=== PATIENT | male | born 1970 | race African-American/Black ===

== ENCOUNTER 2021-02-26 08:26 | Emergency (ER) | payer MEDICAID, OTHER, SELFPAY ==
[~2021-02-26] VITALS: Ht 165.1 cm; Wt 89.7 kg
[2021-02-26 09:19] VITALS: BP 130/97
== END 2021-02-26 09:21 | disposition home or self-care (01) ==
LOC: ED 09:17
DX: E11.9 Type 2 diabetes mellitus without complications (principal); Z76.0 Encounter for issue of repeat prescription; F17.210 Nicotine dependence, cigarettes, uncomplicated
CPT/HCPCS: 99281